=== PATIENT | male | born 1945 | race Caucasian/White ===

== ENCOUNTER → 2018-11-11 12:14 | Outpatient (CLI) | payer OTHER, SELFPAY ==
--- NOTE | 2018-11-11 12:21 | DI.RAD.S_ITS ---
PROCEDURE: XR LUMBAR SPINE MIN 4V INDICATIONS: low back pain TECHNIQUE: 5 views of the lumbar spine were acquired. COMPARISON: [facility], CR, SPINE LUMB MIN 4VW, 06/18/2016, 14:34. FINDINGS: Bones: No fracture or focal osseous destruction. Multilevel degenerative endplate sclerosis and spurring. Diffuse facet arthropathy. Straightening of the normal lumbar lordosis. Severe narrowing of the L4-L5 and L5 as this space. Moderate narrowing of the remaining lumbar disc spaces. Severe bilateral hip degeneration also noted. Soft tissues: Overlying bowel gas pattern is normal. No suspicious soft tissue calcifications. Scattered vascular calcifications seen in the aorta. Oblique images: No pars defects. IMPRESSION: Diffuse lumbar spondylosis and facet arthropathy, without interval change since 06/18/16 Dictated by: David Bunch M.D. on 11/11/2018 at 13:34 Approved by: David Bunch M.D. on 11/11/2018 at 13:36
--- NOTE | 2018-11-11 12:21 | DI.RAD.S_ITS ---
PROCEDURE: XR HIP W PEL IF DONE LT 2V INDICATIONS: left hip pain TECHNIQUE: AP pelvis with lateral view(s) of the left hip(s). COMPARISON: None. FINDINGS: Bones: No fractures or dislocations. Pelvic ring appears intact. No suspicious bony lesions. Lower lumbar spondylosis. Severe bilateral hip joint degeneration. Soft tissues: The visualized bowel gas pattern is normal. No suspicious soft tissue calcifications. IMPRESSION: Severe bilateral hip degeneration. Dictated by: David Bunch M.D. on 11/11/2018 at 14:19 Approved by: David Bunch M.D. on 11/11/2018 at 14:21
== END ==
PROVIDERS: Family Provider Family Medicine; PCP Family Medicine; Visit Provider Physical Medicine & Rehabilitation
DX: M54.5 Low back pain (principal); M47.816 Spondylosis without myelopathy or radiculopathy, lumbar region; M16.0 Bilateral primary osteoarthritis of hip
CPT/HCPCS: 72110; 73502

== ENCOUNTER 2018-12-14 11:20 | Outpatient (CLI) | payer OTHER, SELFPAY ==
[2018-12-14] VITALS (9 sets, daily range): BP systolic 121–151; BP diastolic 67–83; PULSE 54–68; RESP 16–18; TEMP 36.9; O2SAT 95–97
--- NOTE | 2018-12-14 11:21 | DI.RAD.S_ITS ---
PROCEDURE: PAIN L/S FACET INJ/BLK 1ST MARI COMPARISON: None. INDICATIONS: SPONDYLOSIS FINDINGS: 6 intraoperative fluoroscopy images demonstrate needle placement at L4-L5 and L5-S1 facet joints bilaterally. IMPRESSION: Fluoroscopy for pain management. Dictated by: Daisy Jeter M.D. on 12/14/2018 at 17:03 Approved by: Daisy Jeter M.D. on 12/14/2018 at 17:04
[2018-12-14] MEDS: MIDAZOLAM 5 MG/5 ML VIAL IV (12:27)
[2018-12-14] MEDS: LIDOCAINE 1% 20 ML INJ 10 ML INJ (12:35)
[2018-12-14] MEDS: BUPIVACAINE 0.5% (PF) VIAL 2 ML INJ (12:35)
[2018-12-14] MEDS: IOPAMIDOL 15 ML VIAL 3 ML INJ (12:35)
[2018-12-14] MEDS: BETAMETHASONE 30 MG/5 ML MDV 12 MG INJ (12:36)
--- NOTE | 2018-12-14 12:41 | PC.NURSE ---
ASSISTING PT OFF TABLE AND TRANSPORTING TO POST PROC AREA IN STABLE CONDITION
--- NOTE | 2018-12-14 12:47 | PC.NURSE ---
Pt returned awake and alert via wheelchair from post procedure. pt able to move from w/c to chair with standby assist. Resumed monitoring from Eloisa HOANG.
--- NOTE | 2018-12-14 12:47 | P.PCN_ITS ---
Procedures Date/Time Date of procedure: 12/14/18 Time of procedure: 12:46 General Procedure description: PREOP DIAGNOSIS 1. FACET ARTHROPATHY 2. AXIAL LBP 3. MULTILEVEL DDD POST OP DIAGNOSIS 1. FACET ARTHROPATHY 2. AXIAL LBP 3. MULTILEVEL DDD PROCEDURES 1. FLUORSCOPICALLY GUIDED CONTRAST CONTROLLED FACET JOINT INJECTIONS BILATERAL L4/5, L5/S1 PHYSICIAN: Chandler De La Rosa, DO INDICATIONS Kobe is referred by Dr. Callahan for treatment of Axial LBP FINDINGS Multilevel Facet Arthropathy with Clinically significant axial LBP DESCRIPTION OF PROCEDURE Fluoroscopically guided, contrast-controlled bilateral L4/5, L5/S1 facet joint injections. Following review of allergy and review of potential side effects and complications, including, but not necessarily limited to, infection, allergic reaction, local tissue breakdown, stroke, temporary or permanent nerve injury, paralysis, and possible , the patient indicated that the patient understood and agreed to proceed. An informed consent document was signed by the patient, witnessed by a nurse, and placed in the patient's chart. Additionally, other treatment options including medications, modalities, and physical therapy were reviewed with the patient. After review of previous anaesthesic history and IV conscious sedation the patient was deemed safe to proceed with todays procedure with IV conscious sedation as ASA class II designation. Safety time-out was performed to confirm patient ID, procedure to be performed and site of procedure. IV sedation was accomplished with a combination of 2mg of Versed was administered by the RN after DO order, titrated to patient comfort during the course of the procedure while the patient remained responsive to all verbal commands. In the prone position, following sterile prep and drape of the lumbar region, the posterior aspect of the L4/5, L5/S1 facet joints were identified fluoroscopically. The skin was anesthetized via a 25-gauge 1.5-inch needle with 1% lidocaine solution into the corresponding facet joints. At this point, a 22- gauge 3.5-inch spinal needle was atraumatically introduced and advanced under fluoroscopic guidance into the corresponding facet joints. Following negative aspiration, injections of approximately 0.2-cc of Isovue 200 confirmed interarticular placement without vascular uptake. The identical procedure was then performed at the L4/5, L5/S1 facet joints on the left. Radiological data, including multiple fluoroscopic views of the lumbosacral spine, reveal a spinal needle at the L4/5, L5/S1 facet joints bilaterally. Subsequent views show flow of contrast material both superiorly and inferiorly within the joint space without vascular or intrathecal uptake. At this point, a total of 0.5 cc including a mixture of 0.25cc Marcaine and 0.25cc betamethasone was injected without complication into each of the corresponding facet joints. The patient tolerated the procedure well without signs or symptoms of complications prior to transfer to the recovery area continued monitoring without incident. The patient was then transferred to the recovery area where they were observed for an appropriate period of time after the injection. The patient reported a VAS score of 7 prior to the procedure and a post- procedure VAS of 0. Total Fluoroscopy Time: 20.3 seconds Total Conscious Sedation Time: 24min POST OP INSTRUCTIONS The patient was provided a Pain Log to continue to record their response to the target-specific procedure prior to follow-up visit with their referring physician. Additionally, specific post-injection care instructions and a contact number to our office were provided if concerns arise regarding possible complications associated with the procedure are suspected. Chandler De La Rosa DO Complications: none
== END 2018-12-14 13:15 ==
PROVIDERS: Family Provider Family Medicine; PCP Family Medicine; Visit Provider Physical Medicine & Rehabilitation
DX: M47.816 Spondylosis without myelopathy or radiculopathy, lumbar region (principal); M47.817 Spondylosis without myelopathy or radiculopathy, lumbosacral region; M54.5 Low back pain; M51.36 Other intervertebral disc degeneration, lumbar region; M51.37 Other intervertebral disc degeneration, lumbosacral region
CPT/HCPCS: 64493; 64494; 99152; J0702; J2250; J3010

== ENCOUNTER 2019-08-22 09:47 | Inpatient (IN) | payer MEDICARE, SELFPAY ==
[2019-08-18 09:49] VITALS: BMI 26.4
[2019-08-22] VITALS (13 sets, daily range): BP systolic 86–148; BP diastolic 47–92; PULSE 64–92; RESP 11–24; TEMP 36.2–37; O2SAT 91–100; BMI 25.4
--- NOTE | 2019-08-22 | DI.RAD.S_ITS ---
PROCEDURE: XR HIP W PEL IF DONE LT 2V INDICATIONS: LEFT ANTERIOR HIP TECHNIQUE: AP pelvis and lateral view of the left hip acquired. COMPARISON: [facility], [facility], XR HIP W PEL IF DONE LT 2V, 11/11/2018, 12:35. FINDINGS: Spot fluoroscopic intraoperative images demonstrating expected intraoperative alignment of left hip arthroplasty components. Hardware appears intact. Dictated by: David Bunch M.D. on 08/22/2019 at 16:31 Approved by: David Bunch M.D. on 08/22/2019 at 16:32
--- NOTE | 2019-08-22 06:00 | DI.RAD.S_ITS ---
PROCEDURE: XR PELVIS 1-2V INDICATIONS: post op TECHNIQUE: 1 view of the lower pelvis acquired. COMPARISON: [facility], CR, XR PELVIS 1 OR 2 VIEWS, 05/31/2019, 11:34. [facility], [facility], XR HIP W PEL IF DONE LT 2V, 08/22/2019, 14:29. FINDINGS: Bones: Patient is status post left total hip arthroplasty, with hardware components in expected positions. The hip joint appears congruent. The visualized bony structures appear intact. Soft tissues: Overlying postoperative changes are noted. No suspicious soft tissue densities. IMPRESSION: Expected appearance of the left total hip arthroplasty. Dictated by: Dionisio Dong M.D. on 08/22/2019 at 16:04 Approved by: Dionisio Dong M.D. on 08/22/2019 at 16:08
[2019-08-22] MEDS: ACETAMINOPHEN 325 MG TABLET 975 MG PO (10:26)
[2019-08-22] MEDS: PREGABALIN 75 MG CAPSULE PO (10:26)
[2019-08-22] MEDS: LACTATED RINGERS 1,000 ML 42 ML IV ×2 (12:00→13:43)
--- NOTE | 2019-08-22 12:08 | PM.PREOP ---
Pre-operative Note Interval Note History & Physical reviewed/Exam performed by Physician: Yes Changes to H&P: No H&P completed within 30 days and has changed as indicated here:: Plan for L anterior TIMOTHY
[2019-08-22] MEDS: CEFAZOLIN 2 GM/100 ML FROZ.PIGGY IV ×2 (12:25→19:23)
--- NOTE | 2019-08-22 13:12 | SUR.OPER ---
Supine on [place] table. Head on a foam. Right arm secured on padded armboard. Left arm is taped to patient's torso, padded with a blanket. Both feet placed in boots by a surgeon and PA, and secured.
[2019-08-22] MEDS: ROPIVACAINE 0.5% PF 5 MG/ML 20ML VIAL 60 ML INJ (13:34)
[2019-08-22] MEDS: MORPHINE 4 MG/ML INJ INJ (13:35)
[2019-08-22] MEDS: KETOROLAC 30 MG/ML VIAL IV (13:35)
[2019-08-22] MEDS: TRANEXAMIC ACID 1,000 MG VIAL 1000 MG INJ (13:37)
--- NOTE | 2019-08-22 14:56 | PM.OP.1 ---
Operative Date/Time/Diagnoses Date of procedure: 08/22/19 Time of procedure: 14:56 Pre-op diagnosis: L hip OA Post-op diagnosis: same Procedure & Clinicians Procedure: Left anterior total hip arthroplasty Same procedure as scheduled: Yes Indications: Left hip osteoarthritis Surgeon: Bal Hoyt Flying Instructor: Anna Hathaway Anesthesia Type: General and Spinal Operative Notes Findings: Left hip OA Closure Type: primary Specimen(s): none sent Prosthetic devices, grafts, tissues, transplants, or devices: Bardales and Nephew 56 mm R3 cup Bardales and Nephew 56 x 36 mm polyethylene liner Bardales and Nephew standard offset anthology size 11 Bardales and Nephew Oxinium 36-3 mm head 1x 25mm screw Estimated Blood Loss (mL): 200 Blood products transfused: none Procedure in detail: Patient was met in the preoperative holding area where the site and side of surgery were marked by MD. All last minute questions were reviewed with the patient and answered. Patient was then brought back in the operating room where use transferred onto the [place] table and he received a spinal anesthetic. Patient was then placed supine on the [place] table and induced under general anesthesia. Bilateral feet were placed on the table boots were well padded. The left anterior hip was then prepped and draped in normal sterile fashion. A time-out was performed verifying the site and side of surgery as well as the name of the patient. A 6 cm long incision was made starting 2 cm distal and 1 cm lateral from that ASIS. This line aim towards the fibular head. Electrocautery was then used down to the level of the tensor fascia. A 10. Blade was used to incise the tensor fascia and Allis clamp was placed on the medial leaflet of the tensor fascia and the tensor was then retracted laterally. A Cobra was placed over the superior neck followed by a Cobra over the inferior neck. The ascending recurring vessels were then coagulated using electrocautery. An anterior acetabular retractor was used to retract the rectus. This gave us good as a visualization of the capsule which was then incised in a T-fashion. [place] is replaced into each leaflet of the capsule. A neck cut was then performed using an oscillating saw followed by removal of the head using a corkscrew. Retractors then repositioned gives good acetabular exposure. We began reaming with a 51 mm Reamer followed by 52 followed by 54 followed by 55 mm reamers. A 56 mm cup was then selected and malleted into place under fluoroscopic guidance. One superior screw was placed. This had good purchase. A 56 x 36 mm polyethylene final liner was then placed. We then placed the femoral elevator hook underneath the femur and performed the appropriate releases while lowering the leg down to the floor and abducting the leg to give us good exposure femoral neck cut. The capsule was released between the special attention as to not release the short external rotators fully. Canal finer was used to find the center of the femoral canal. Followed by a chili pepper broach followed by a 1. Broach and we increased space 1 size at a time up to a size 11 broach. We trialed with a standard offset +0 head and found to be a little long. This was then dislocated the trial components removed and the final 11 anthology standard offset stem was placed with a 36-3 Oxinium head. This apart through final range of motion found to be stable. Wound was irrigated with normal saline followed by Betadine followed by normal saline. The capsule was repaired using Ethibond in running suture fashion. Tag stitches were removed. The tensor fascia was then closed with a 1. Running Vicryl and subcutaneous tissues closed using 2 Vicryl followed by stress FX on the skin an Aquacel dressing was placed. Complications: none Post-operative Condition: stable Disposition: PACU Plan for aftercare: Weightbearing as tolerated left lower extremity. No precautions. ASA 81 mg b.i.d. for 6 weeks.
[2019-08-22] MEDS: OXYCODONE IR 5 MG TABLET PO (16:03)
--- NOTE | 2019-08-22 16:04 | SUR.PHASEI ---
Gave PO pain medication preemptively. Tolerating po. Denies pain and nausea. DARIO's x 4. Sugeyg CDI.
[2019-08-22] MEDS: LACTATED RINGERS 1,000 ML 125 ML IV (16:56)
[2019-08-22 17:51] LABS: Mean Corpuscular HGB Conc 33.3 % (30-36); Mean Corpuscular Hemoglobin 31.5 PG (26-34); Mean Corpuscular Volume 94.8 fL (80-100); Platelet Count 302 X10^3/uL (150-400); Red Blood Cell Count 4.44 X10^6/uL (4.5-5.9); White Blood Cell Count 25.6 X10^3/uL (4.5-11.0)
[2019-08-22 17:54] LABS: Add Manual Diff / Slide Review YES
[2019-08-22 18:13] LABS: Neutrophils Absolute Manual 24320 /uL (3000-5900); RBC Morphology Normal Morphology; Total Cells Counted 100
--- NOTE | 2019-08-22 18:42 | PC.NURSE ---
Pt stated he did not have his am dose of metoprolol (12.5 mg) due to surgery. He requested he have his pm dose early. Pharmacy re timed pm dose for 1899.
[2019-08-22] MEDS: ACETAMINOPHEN 325 MG TABLET 650 MG PO (20:59)
[2019-08-22] MEDS: TAMSULOSIN 0.4 MG CAPSULE 0.8 MG PO (21:00)
[2019-08-22] MEDS: ASPIRIN EC 81 MG TABLET PO (21:00)
[2019-08-22] MEDS: DOCUSATE 100 MG CAPSULE PO (21:00)
[2019-08-22] MEDS: diphenhydrAMINE 25 MG TABLET PO (22:20)
[2019-08-23] VITALS (7 sets, daily range): BP systolic 99–166; BP diastolic 51–77; PULSE 55–88; RESP 16–19; TEMP 36.7–37.4; O2SAT 92–98
[2019-08-23] MEDS: LACTATED RINGERS 1,000 ML 125 ML IV (01:39)
--- NOTE | 2019-08-23 02:41 | PC.NURSE ---
Tried to void on his own x4, was not able to void. Bladder scanned showed 546 cc in his bladder. In & Out catheterization done 650 cc out jareth urine. Encouraged fluids, will monitor.
[2019-08-23] MEDS: OXYCODONE IR 5 MG TABLET PO ×3 (04:08→21:37)
[2019-08-23] MEDS: CEFAZOLIN 2 GM/100 ML FROZ.PIGGY IV (04:08)
[2019-08-23 06:53] LABS: Hematocrit 39.6 % (41-53)
--- NOTE | 2019-08-23 07:40 | PM.PNPO.1 ---
Subjective Subjective Date Patient Seen: 08/23/19 Time Patient Seen: 07:40 Interval history: POD #1 s/p left TIMOTHY anterior approach with Dr. Hoyt. Patient was unable to void last night. He has a history of BPH. He was straight cathed last night. His pain is well-controlled last night. He has been mobilizing to bathroom. Exam Vital Signs (past 8 hours): - 08/23/19 00:27 08/23/19 05:09 Temperature 98.0 F 98.0 F Pulse Rate 86 68 Respiratory Rate 19 18 Blood Pressure 166/77 H 110/63 Pulse Oximetry 93 92 Oxygen Delivery Method Room Air Oxygen Flow Rate 0 Narrative Exam Narrative: Patient lying in bed in no acute distress. He is alert orient x3. Calves are soft, compressible, nontender bilaterally. Pulses are symmetrical. Anterior hip dressing CDI. He is able to actively dorsiflex plantar flex. Objective Labs Result Diagrams: 08/23/19 06:25 Labs: Laboratory Results - last 24 hr 08/22/19 08/23/19 17:36 06:25 WBC 25.6 H RBC 4.44 L Hgb 14.0 13.0 L Hct 42.0 39.6 L MCV 94.8 MCH 31.5 MCHC 33.3 RDW 14.0 Plt Count 302 Neut % (Auto) Not Reportable Lymph % (Auto) Not Reportable [place] % (Auto) Not Reportable Eos % (Auto) Not Reportable Baso % (Auto) Not Reportable Lymph # (Auto) Not Reportable [place] # (Auto) Not Reportable Baso # (Auto) Not Reportable Total Counted 100 Seg Neutrophils % 85.0 H Band Neutrophils % 10.0 H Lymphocytes % (Manual) 3.0 L Monocytes % (Manual) 2.0 Neutrophils # (Manual) 00656 H RBC Morphology Normal morphology Assessment & Plan Post-op Postoperative Procedures: Procedures Operation Date: 08/22/19 11:15 Actual Procedures Side Surgeon p Total Hip Arthroplasty/Anterior Approach Left Bal Hoyt MD Patient will continue to mobilize with physical therapy today. Anterior hip precautions. If patient is unable to void recommending Ramos until tomorrow morning. He already takes Flomax for his BPH. Patient has acute urinary retention and not recommending discharge until he voids. Quality VTE Deep Vein Thrombosis/Pulmonary Embolism Present on Admission: No
[2019-08-23] MEDS: DOCUSATE 100 MG CAPSULE PO ×2 (09:31→21:34)
[2019-08-23] MEDS: PANTOPRAZOLE 20 MG TABLET PO (09:32)
[2019-08-23] MEDS: lisinopriL 10 MG TABLET 15 MG PO (09:32)
[2019-08-23] MEDS: ASPIRIN EC 81 MG TABLET PO ×2 (09:32→21:34)
[2019-08-23] MEDS: ACETAMINOPHEN 325 MG TABLET 650 MG PO ×3 (09:33→21:33)
[2019-08-23] MEDS: FLUoxetine 10 MG CAPSULE PO (09:33)
--- NOTE | 2019-08-23 09:45 | PT.IIE ---
Current Diagnoses Unilateral primary osteoarthritis, left hip (08/22/19) Surgery Performed Operation Date: 08/22/19 11:15 Actual Procedures p Total Hip Arthroplasty/Anterior Approach(Left) - Bal Hoyt MD Surgical History (Last Updated 08/18/19 @ 10:28 by Sarah Cohen, RN) History of colon resection (Acute ~1984) Hx of splenectomy (Acute ~1984) Hx of tonsillectomy (Acute) Medical History (Last Updated 08/18/19 @ 10:29 by Sarah Cohen RN) Arthritis (Acute) Crohn's disease (Acute) Easy bruisability (Acute) Hearing impaired (Acute) HTN (hypertension) (Acute) Memory changes (Acute) Osteoarthritis (Acute) Overactive bladder (Acute) Stomach ulcer (Acute) Thinning of skin (Acute) Physical Therapy Inpatient Evaluation/Re-Eval M1 PT/OT-IP Prior Functional Status Start: 08/23/19 12:18 Freq: NEEDED Status: Active Protocol: Document 08/23/19 09:45 AB (Rec: 08/23/19 12:40 AB [email or web address]) Medical Review Prior Functional Status Medical History Reviewed Yes Communication able to make needs known Mobility and Gait pt stated that he is independent with all mobilities and ambulation without AD Social History Household Members spouse Living Arrangements House Number of Floors (Floors) One Floor Number of Stairs To Enter/Railing? 3 platform step to enter the house Home Environment High Toilet,Walk in Shower,Tub /Shower Doors Home Equipment Front Wheel Walker,Shower Seat without Backrest,Grab Bars In Shower M2 PT-IP Current Condition Start: 08/23/19 12:18 Freq: NEEDED Status: Active Protocol: Document 08/23/19 09:45 AB (Rec: 08/23/19 12:40 AB [email or web address]) Physical Therapy Current Condition Current Condition Evaluation Date 08/23/19 Treatment Diagnosis s/p L TIMOTHY anterior approach; difficulty in walking Onset Date 08/22/2019 Precautions Other Precautions per doctor's note: no precautions. Weight Bearing Status Weight Bearing Status Weight Bear as Tolerated Allowed Weight Bearing Amount (enter % WBAT LLE or #) (%) M3 PT-IP Subjective Start: 08/23/19 12:18 Freq: NEEDED Status: Active Protocol: Document 08/23/19 09:45 AB (Rec: 08/23/19 12:40 AB [email or web address]) Subjective Physical Therapy Visit Type Type Initial Evaluation Visit Start Time 09:45 Visit Stop Time 10:15 Total Visit Minutes 30 Number of ENVIRONMENTAL ASSOCIATE Visits 0 Physical Therapy Visit Comments Patient Comments pt agreeable to do PT. Therapy Pain Assessment Pain When Pain Assessed At Rest Pain Present Pain Present Pain Reported Location Left Hip Intensity 3 Scale Used Numeric (1 - 10) Pain Management Techniques Apply Cold,Timing of Activity with Medications M4 PT-IP Mobility and Gait Start: 08/23/19 12:18 Freq: NEEDED Status: Active Protocol: Document 08/23/19 09:45 AB (Rec: 08/23/19 12:40 AB [email or web address]) PT-Bed Mobility Assessment Supine to Sit Supine to Sit Standby Assistance Sit to Supine Sit to Supine Standby Assistance Scooting Scooting to Edge of Bed Standby Assistance Scooting Up and Down in Bed Standby Assistance PT-Transfer Assessment Sit to and From Stand Sit to and from Stand Contact Guard Assistance,1 Person Assistance,Use of Upper Extremities Equipment Transfer Assistive Device Gait Belt,Front Wheeled Walker Orthotic/Prosthetic Devices or Brace: No Transfers Transfer Destination Toilet Transfer Technique ambulated using FWW Transfer Ability Level of Assist Standby Assistance Comments Mobility Comments pt is impulsive. completed supine to sit SBA and was able to sit on EOB SBA. completed sit to stand CGA and ambulated to the toilet using FWW CGA. pt requires cues on how to use the FWW. pt was able to maintain standing using FWW for support SBA. pt ambulated to the sink using FWW CGA. pt ambulated in the hallway using FWW towards the stairs and completed up/down steps using FWW. ambulated back to the room using FWW CGA . pt agreed to sit up on chair. call light and table placed within reach. Gait Assessment Gait Gait Assistance Required: Contact Guard Assist Distance (Feet) 50 Able to Maintain Weight Bearing Status Yes During Gait Assistive Devices Assistive Device Gait Belt,Front Wheeled Walker Orthotic/Prosthetic Devices or Brace: No Factors Limiting Gait Function Factors Limiting Gait Function Decreased Strength,Pain,Poor Safety Awareness Comments Gait Comments ambulated 50 ft x 2 using FWW CGA and cues for safety. pt requires cues on how to use FWW. pt is impulsive. Stair Climbing Assessment Evaluation Level of Assist On Stairs Contact Guard Assistance,1 Person Assistance Devices Stair Climbing Assistive Devices Front Wheel Walker Technique/Endurance Stair Climbing Direction Ascend and Descend Stair Climbing Technique Step to Step Number of Steps Climbed 1 Query Text: Stair Climbing Set # Repetitions (reps) 3 Comments Stair Climbing Comments completed up/down platform step using FWW CGA and cues. PT-Balance Assessment Sitting Balance and Reactions Static Sitting Balance Ability Good Dynamic Sitting Balance Ability Good Standing Balance and Reactions Static Standing Balance Ability Fair Dynamic Standing Balance Ability Fair Device Used FWW M5 PT-IP Objective Assessments Start: 08/23/19 12:18 Freq: NEEDED Status: Active Protocol: Document 08/23/19 09:45 AB (Rec: 08/23/19 12:40 AB [email or web address]) Orientation Orientation/Cognition Level of Alertness Alert Orientation Name,Age,Birthday,Month,Date, Year,Day of Week,Place, Situation Safety Awareness Decreased Safety Awareness Gross Range of Motion Lower Extremity ROM Assessment Within Functional Limits Strength Lower Extremity Strength Assessment Left Impaired Hip 3+/5 Knee 4-/5 Coordination Assessment Gross Coordination Gross Coordination WNL Muscle Tone Muscle Tone WNL Yes M6 PT-IP Treatment Start: 08/23/19 12:18 Freq: NEEDED Status: Active Protocol: Document 08/23/19 09:45 AB (Rec: 08/23/19 12:40 AB [email or web address]) Physical Therapy Treatment Education Education Provided Precautions,Weight Bearing Status,Post-Op Packet,Safety M7 PT-IP Assessment and Plan Start: 08/23/19 12:18 Freq: NEEDED Status: Active Protocol: Document 08/23/19 09:45 AB (Rec: 08/23/19 12:40 AB [email or web address]) PT Summary Assessment and Plan Potential Rehabilitation Potential Good Status of Condition at Evaluation Stable Summary Impairments Pain,ROM,Strength,Balance, Coordination,Sensation,Tone, Cognition,Bed Mobility, Transfers,Gait,Activity Tolerance Assessment Summary pt requiring SBA to CGA with mobility but requires constant cues for safety. pt. plans to go home with spouse to assist him. pt stated that he is scheduled for outpt PT. pt may go home when medically stable. Goals Bed Mobility Goal Independent Transfer Goal Independent,Front Wheeled Walker Gait Goal Independent,Front Wheel Walker Gait Distance 200 Other Goals up/down platform step using FWW SBA Days to Meet Goals 5 Frequency of Treatment Frequency Of Treatment Twice a Day Treatment Plan Physical Therapy Treatment Plan Bed Mobility Training,Transfer Training,Gait Training, Therapeutic Exercise,Balance Retraining,Post Op Education, Discharge Planning,Hot or Cold Pack,Neuromuscular Re-ed, Coordination Retraining,Manual Therapy Other Recommendations and Next Treatment ambulation, stair climbing Focus Recommendations To Nursing Amount of Assist Needed 1 Person Assist Discharge Recommendations PT Discharge Recommendations Home with Assistance, Outpatient PT Transportation Needs at Discharge Private Vehicle
--- NOTE | 2019-08-23 13:03 | CM.DANOTE ---
Addendum entered by Staci Michaud LPN 08/23/19 13:27: Met with pt, introduced self and role. Pt is a 74 year old male who admitted yesterday for a planned L TIMOTHY. Anterior approach. Dr. Hoyt: surgeon. PCP: pt confirms: Violet Alcaraz: clinic in [place]. Admission status: INPT: confirmed by UR VIKTOR Juares Payer: [facility]. Pt uses a FWW at baseline and has this in the room with him. He confirms his plan for home when he is ready for d/c: with plan for outpt PT at clinic in [place]. He states he does have some family support but my Sarah does not drive, she is bipolar and is having a lot of trouble right now. [place] but will be able to drive him to his outpt PT appts. Discussed transport back to [place] when he is d/c'd. Pt initially said he planned [place] and walk on...After further discussion he admits that at least 2 friends have offered to come and pick him up and have strongly encouraged him to accept their help. He is now agreeable to same. He requests a ferry schedule so he can help his friends in coordination of same. He says it will be helpful if he can know ahead of time when he will likely d/c. Will provide ferry schedule now. Original Note: Discharge Planning/Care Management DCP: assessment: case received, EMR reviewed. Discussed in Team Rounds. PT Trisha's eval is noted. Will check in with pt now to continue the assessment process. Advanced directive, confirm from FAMILY Start: 08/22/19 16:47 Freq: Q24H Status: Active Protocol: Document 08/22/19 16:47 SL (Rec: 08/22/19 17:08 SL [id number]) Advance Directive, confirm on record Time 17:08 Person contacted patient Copy received No CM Discharge Assessment Start: 08/23/19 13:02 Freq: Status: Active Protocol: Document 08/23/19 13:02 ITV (Rec: 08/23/19 13:03 ITV [id number]) Discharge Planning Assessment Advance Directives? No Advance Directives on File No History Provided By Patient,Medical Record Prior Living Arrangements House Household Members spouse Independent with ADL's Yes Is patient alert and oriented? Yes Whiteboard Updated in Patient Room with Yes name and ext. # of Community Service Coordinator Pre-Anesthesia Assessment Start: 08/18/19 09:48 Freq: Status: Active Protocol: Document 08/18/19 09:49 [facility] (Rec: 08/18/19 10:46 CAB [id number]) Pre-Anesthesia Assessment PAC Comment Pt seems easily confused, repeats/denies some medications, unable to spell his 's name. When asked about his memory, he states, maybe a little problems. Patient Information Reviewed Via Phone Assessment Assessment Completed With Patient Diagnostic Results CBC,EKG Comment Outside lab/EKG report(no tracing)scanned to record Primary Care Provider Violet Callahan Seen Specialist in Last 12 Months Yes Specialist Seen Orthopedist,Other Comment Pain management visits Primary Language Mongolian Electric Fan Assembler Required No Height 182.88 cm Weight 88.451 kg Body Mass Index (BMI) 26.4 Hearing Ability Hard of Hearing Visual Assist Glasses Dentition Type Teeth, Natural Present Barriers to Learning Memory Comment Pt confused when going over medications Hx Anesthesia Reactions No: Memory changes Hx Family Anesthesia Reaction No Hx Malignant Hyperthermia No Hx Blood Transfusions Yes: r/t splenectomy/colon resection 1984 Hx Blood Transfusion Reaction No Anesthesia Review Requested No Wheel Truer Yes: Lives on [address], memory changes alcohol intake current alcohol intake frequency 0-2 drinks per day Smoking Status Former smoker Tobacco type cigarettes how long ago did patient quit smoking Quit >45 years ago Substance Use Type does not use Pain Present Pain Reported Musculoskeletal Symptoms Abnormal Gait,Back Pain, Difficulty Walking,Joint Pain, Neck Pain History of Falling (Recent or History of No ) Patient is completely paralyzed or No completely immobile Mental Status Oriented to own ability Is patient on oxygen? No Does patient have JOY/SOB No Hx Sleep Apnea No Currently Taking a Beta Som No Can You Climb a Flight of Stairs Without Yes SOB Hx Chest Pain No Hx SOB No Hx Syncope or Dizziness No Anti-Coagulant Therapy No Has a Slat Basket Maker Helper No Cardiac Testing No Hx Pacemaker/ICD No Pacemaker Rep Required? No Cardiac Clearance Received Not Applicable Diet Type At Home Regular dysphagia No Genitourinary Symptoms Dribbling Bladder Pattern Frequency Urinary Catheter Present No Hx Urinary Self Catheterization No Diabetes No Hx Drug Resistant Organism No Presence of External or Internal Medical No Devices Have you traveled outside the [place] No States in the last 30 days? Marital Status Lives With spouse Prior Living Arrangements House Number of Floors (Floors) One Floor Support System Child/Children,Spouse Does the Patient Have Assistance After Yes Surgery Patient Discharge Plan Description Return Home Comment Pt not advised on length of stay per surgeon. Pt lives on [facility] Feels Safe in Current Environment Yes Been Physically Hurt or Threatened By a No Person in Current Environment Do you have thoughts of harming yourself None or others? Are you currently considering suicide? No Do you have a plan to hurt yourself or No Plan others? Do You Have Any Spiritual Beliefs That No May Affect Your HC Choices? Do You Have Any Cultural Practices That No May Affect Your HC Choices? Comment Hinduism Who Can We Speak to About Patient's Care Family, friends Identifying Code for Release of Patient Declines to issue Information Health Care Proxy/Next of Kin Savi () Health Care Proxy Emergency Contact Name Savi () Emergency Contact Advance Directives? No Power of Allied Health Professional No PAC Instructions Durable medical equipment, Medications to take/avoid, Nasal antibiotic,No ETOH/ petroleum product on skin DOS, NPO,Post-op transportation, Sensory aids,Sturdy shoes/ comfortable clothes,Do not bring valuables and remove jewelry
--- NOTE | 2019-08-23 14:48 | PC.NURSE ---
Day shift: Pt restless this afternoon. Atempted to get OOB 2 times per RN student and SUBSTITUTE BUS DRIVER. Reminded Pt that he needs to not get OOB w/o help from staff because he had surgery, has SCD's on, and a Ramos cath in place.
--- NOTE | 2019-08-23 15:25 | PT.IPTN ---
Current Diagnoses Unilateral primary osteoarthritis, left hip (08/22/19) Surgery Performed Operation Date: 08/22/19 11:15 Actual Procedures p Total Hip Arthroplasty/Anterior Approach(Left) - Bal Hoyt MD Physical Therapy Treatment Note M2 PT-IP Current Condition Start: 08/23/19 12:18 Freq: NEEDED Status: Active Protocol: Document 08/23/19 09:45 AB (Rec: 08/23/19 12:40 AB [email or web address]) Physical Therapy Current Condition Current Condition Evaluation Date 08/23/19 Treatment Diagnosis s/p L TIMOTHY anterior approach; difficulty in walking Onset Date 08/22/2019 Precautions Other Precautions per doctor's note: no precautions. Weight Bearing Status Weight Bearing Status Weight Bear as Tolerated Allowed Weight Bearing Amount (enter % WBAT LLE or #) (%) M3 PT-IP Subjective Start: 08/23/19 12:18 Freq: NEEDED Status: Active Protocol: Document 08/23/19 15:25 AB (Rec: 08/23/19 17:39 AB [email or web address]) Subjective Physical Therapy Visit Type Type Treatment Note Visit Start Time 15:25 Visit Stop Time 15:39 Total Visit Minutes 14 Number of SENIOR ENGINEERING SPECIALIST Visits 0 Physical Therapy Visit Comments Patient Comments pt agreeable to do PT Therapy Pain Assessment Pain When Pain Assessed At Rest Pain Present Pain Present Pain Reported Location Left Hip Intensity 2 Scale Used Numeric (1 - 10) Pain Management Techniques Timing of Activity with Medications M4 PT-IP Mobility and Gait Start: 08/23/19 12:18 Freq: NEEDED Status: Active Protocol: Document 08/23/19 15:25 AB (Rec: 08/23/19 17:39 AB [email or web address]) PT-Bed Mobility Assessment Supine to Sit Supine to Sit Standby Assistance Sit to Supine Sit to Supine Standby Assistance PT-Transfer Assessment Sit to and From Stand Sit to and from Stand Standby Assistance,Use of Upper Extremities Equipment Transfer Assistive Device Gait Belt,Front Wheeled Walker Orthotic/Prosthetic Devices or Brace: No Gait Assessment Gait Gait Assistance Required: Standby Assistance Distance (Feet) 150 Able to Maintain Weight Bearing Status Yes During Gait Assistive Devices Assistive Device Gait Belt,Front Wheeled Walker Orthotic/Prosthetic Devices or Brace: No Factors Limiting Gait Function Factors Limiting Gait Function Pain,Poor Balance,Poor Safety Awareness Stair Climbing Assessment Evaluation Level of Assist On Stairs Contact Guard Assistance,1 Person Assistance Devices Stair Climbing Assistive Devices Front Wheel Walker Technique/Endurance Stair Climbing Direction Ascend and Descend Stair Climbing Technique Step to Step Number of Steps Climbed 1 Stair Climbing Set # Repetitions (reps) 2 M5 PT-IP Objective Assessments Start: 08/23/19 12:18 Freq: NEEDED Status: Active Protocol: Document 08/23/19 09:45 AB (Rec: 08/23/19 12:40 AB [email or web address]) Orientation Orientation/Cognition Level of Alertness Alert Orientation Name,Age,Birthday,Month,Date, Year,Day of Week,Place, Situation Safety Awareness Decreased Safety Awareness Gross Range of Motion Lower Extremity ROM Assessment Within Functional Limits Strength Lower Extremity Strength Assessment Left Impaired Hip 3+/5 Knee 4-/5 Coordination Assessment Gross Coordination Gross Coordination WNL Muscle Tone Muscle Tone WNL Yes M6 PT-IP Treatment Start: 08/23/19 12:18 Freq: NEEDED Status: Active Protocol: Document 08/23/19 15:25 AB (Rec: 08/23/19 17:39 AB [email or web address]) Physical Therapy Treatment Education Education Provided Safety M7 PT-IP Assessment and Plan Start: 08/23/19 12:18 Freq: NEEDED Status: Active Protocol: Document 08/23/19 15:25 AB (Rec: 08/23/19 17:39 AB [email or web address]) PT Summary Assessment and Plan Potential Rehabilitation Potential Good Summary Impairments Pain,ROM,Strength,Balance,Bed Mobility,Transfers,Gait, Activity Tolerance Progress Towards Goals Progressing Toward Goals Assessment Summary pt is doing well with mobility and requires SBA and cues for safety. able to go up/down steps using FWW CGA. pt plans to go home and spouse to assist him. Goals Bed Mobility Goal Independent Transfer Goal Independent,Front Wheeled Walker Gait Goal Independent,Front Wheel Walker Gait Distance 200 Other Goals up/down platform step using FWW SBA Days to Meet Goals 5 Frequency of Treatment Frequency Of Treatment Twice a Day Treatment Plan Physical Therapy Treatment Plan Bed Mobility Training,Transfer Training,Gait Training, Therapeutic Exercise,Balance Retraining,Post Op Education, Discharge Planning,Hot or Cold Pack,Neuromuscular Re-ed, Coordination Retraining,Manual Therapy Other Recommendations and Next Treatment ambulation, stair climbing Focus Recommendations To Nursing Amount of Assist Needed 1 Person Assist Discharge Recommendations PT Discharge Recommendations Home with Assistance, Outpatient PT Transportation Needs at Discharge Private Vehicle
[2019-08-23] MEDS: TAMSULOSIN 0.4 MG CAPSULE 0.8 MG PO (21:34)
[2019-08-24] MEDS: OXYCODONE IR 5 MG TABLET PO ×2 (05:34→08:28)
--- NOTE | 2019-08-24 06:10 | PC.NURSE ---
Slept well last night, woke up with the pain scale of 5/10 medicated with 5 mg. oxycodone. Rachel DURAN''d @ 0600.
[2019-08-24 06:11] VITALS: BP 115/56; PULSE 66; RESP 16; TEMP 37.2; O2SAT 97
[2019-08-24 07:30] VITALS: BP 134/67; PULSE 73; RESP 16; TEMP 37.4; O2SAT 96
--- NOTE | 2019-08-24 08:03 | PM.DS.1 ---
History of Present Illness History of Present Illness Date Patient Seen: 08/24/19 Time Patient Seen: 08:03 Chief complaint: Left Total Hip Arthroplasty Narrative: Patient's pain is moderate. Denies fever chills. No nausea vomiting. Patient has been ambulating with use of walker. Patient was able urinate twice since having Ramos catheter removed last night. Patient does have assistance at home. Discharge Providers Provider Date of admission: 08/22/19 09:47 Discharge Date: 08/24/19 Primary care physician: Violet Callahan MD Consults: 08/22/19 06:00 Consult to Anesthesiology Routine Comment: Consulting Provider: Anesthesiologist Reason for consultation: Regional block for post operative pain control 08/22/19 16:06 Consult to Discharge Planning Routine Comment: Consult to Physical Therapy Evaluate & Treat Comment: Physician Instructions: post op TIMOTHY protocol Consult to Respiratory Therapy Evaluate & Treat Comment: Physician Instructions: Evaluate and treat Discharge provider: Christiano Perdomo PA-C Summary Hospital Course Discharge Diagnosis: Left anterior total hip arthroplasty secondary to severe left hip osteoarthritis Hospital Course: Procedure: Left anterior total hip arthroplasty Same procedure as scheduled: Yes Indications: Left hip osteoarthritis Surgeon: Bal Hoyt Contract Mail Carrier: Anna Hathaway Anesthesia Type: General and Spinal Operative Notes Findings: Left hip OA Closure Type: primary Specimen(s): none sent Prosthetic devices, grafts, tissues, transplants, or devices: Bardales and Nephew 56 mm R3 cup Bardales and Nephew 56 x 36 mm polyethylene liner Bardales and Nephew standard offset anthology size 11 Bardales and Nephew Oxinium 36-3 mm head 1x 25mm screw Estimated Blood Loss (mL): 200 Blood products transfused: none Patient admitted to the hospital for left total hip arthroplasty. Patient underwent left total hip arthroplasty is back in his room recovering well as in stable condition. Patient did have urinary retention which he had a catheter in till yesterday evening. He has been able to void twice since having catheter removed. Patient has been doing well with physical therapy and will be discharged home today in stable condition. Status at Discharge Cognitive/behavioral status at discharge: at baseline, oriented Functional status at discharge: uses cane/walker Overall status at discharge: patient is progressing back to baseline Time Spent with Patient Time spent: Less than 30 minutes Exam Vital Signs (past 8 hours): - 08/24/19 06:11 Temperature 98.9 F Pulse Rate 66 Respiratory Rate 16 Blood Pressure 115/56 L Pulse Oximetry 97 Oxygen Delivery Method Room Air Oxygen Flow Rate 0 Narrative Exam Narrative: 74-year-old male resting comfortably in bed in no apparent distress. Left hip dressing is clean, dry and intact. Motor functions intact distally. Sensation grossly intact to light touch. Both legs are warm and dry. Objective Labs Result Diagrams: 08/23/19 06:25 Discharge Plan Discharge Plan Patient Disposition: Home Discharge comment: DC home today after PT Discharge orders & Medications Prescriptions: New acetaminophen 325 mg Tablet 500 mg PO Q4HR Qty: 60 RF: 0 aspirin 81 mg Tablet,Delayed Release (Dr/Ec) 81 mg PO BID Qty: 60 RF: 0 oxycodone 5 mg Tablet 5 mg PO Q3HR PRN (Reason: Pain, Moderate (4-6)) Qty: 40 RF: 0 Continued Pentasa 250 mg Capsule, Extended Release 250 mg PO QID RF: 0 fluoxetine 20 mg Tablet 10 mg PO DAILY RF: 0 cyanocobalamin (vitamin B-12) [Vitamin B-12] 1,000 mcg Tablet 100 mcg PO DAILY RF: 0 ferrous gluconate 324 mg (38 mg iron) Tablet 324 mg PO BID RF: 0 pantoprazole 20 mg Tablet,Delayed Release (Dr/Ec) 20 mg PO DAILY RF: 0 cholecalciferol (vitamin D3) 2,000 unit capsule 2,000 unit PO DAILY RF: 0 lisinopril 30 mg tablet 15 mg PO DAILY RF: 0 loperamide [Imodium A-D] 2 mg capsule 1 mg PO DAILY RF: 0 melatonin 5 mg capsule 5 mg PO BEDTIME RF: 0 metronidazole 0.75 % gel 1 applictn TOP BID RF: 0 tamsulosin [Flomax] 0.4 mg capsule 0.8 mg PO BEDTIME RF: 0 Discontinued acetaminophen 325 mg Tablet 650 mg PO QID RF: 0 Follow up/Referrals: Violet Callahan MD [Primary Care Provider] - Bal Hoyt MD [Physician] - (follow up 2 wks) Discharge Health Status Multidrug resistant organism: No MDRO Diet/Activity/Treatments Diet: Diet as Tolerated Activity: WBAT, 10 ankle pumps every hour while awake, 10 heel slides every hour while awake, short 3-5 minute walk every hour while awake Cold/Heat Therapy: ice as needed Other treatments: Tylenol 500 mg every 4 hours, aspirin 81 mg twice daily, oxycodone as needed for pain Skin/Wound/Dressing Care Report to your healthcare provider any signs of infection, such as:: chills, fever, increased pain, unusual drainage and unusual redness Dressing: Keep dressing clean and dry Visit Report/Discharge Packet Instructions: DI for Hip Replacement, DI for Prescription Opioid Use Stand Alone Forms: Surgery Discharge Discharge Data Primary Care Provider: Violet Callahan VTE Deep Vein Thrombosis/Pulmonary Embolism Present on Admission: No
[2019-08-24] MEDS: ASPIRIN EC 81 MG TABLET PO (08:26)
[2019-08-24] MEDS: PANTOPRAZOLE 20 MG TABLET PO (08:26)
[2019-08-24] MEDS: ACETAMINOPHEN 325 MG TABLET 650 MG PO (08:27)
[2019-08-24] MEDS: lisinopriL 10 MG TABLET 15 MG PO (08:27)
[2019-08-24] MEDS: FLUoxetine 10 MG CAPSULE PO (08:30)
[2019-08-24] MEDS: SODIUM CHLORIDE 0.9% FLUSH 10 ML IV (08:30)
--- NOTE | 2019-08-24 09:09 | PT.IPTN ---
Current Diagnoses Unilateral primary osteoarthritis, left hip (08/22/19) Surgery Performed Operation Date: 08/22/19 11:15 Actual Procedures p Total Hip Arthroplasty/Anterior Approach(Left) - Bal Hoyt MD Physical Therapy Treatment Note M2 PT-IP Current Condition Start: 08/23/19 12:18 Freq: NEEDED Status: Active Protocol: Document 08/23/19 09:45 AB (Rec: 08/23/19 12:40 AB [email or web address]) Physical Therapy Current Condition Current Condition Evaluation Date 08/23/19 Treatment Diagnosis s/p L TIMOTHY anterior approach; difficulty in walking Onset Date 08/22/2019 Precautions Other Precautions per doctor's note: no precautions. Weight Bearing Status Weight Bearing Status Weight Bear as Tolerated Allowed Weight Bearing Amount (enter % WBAT LLE or #) (%) M3 PT-IP Subjective Start: 08/23/19 12:18 Freq: NEEDED Status: Active Protocol: Document 08/24/19 09:09 AB (Rec: 08/24/19 11:18 AB [id number]) Subjective Physical Therapy Visit Type Type Treatment Note Visit Start Time 09:09 Visit Stop Time 09:24 Total Visit Minutes 15 Number of HEAD NECK SURGEON Visits 0 Physical Therapy Visit Comments Patient Comments agreeable to do PT Therapy Pain Assessment Pain When Pain Assessed At Rest Pain Present Pain Present Pain Reported Location Left Hip Intensity 3 M4 PT-IP Mobility and Gait Start: 08/23/19 12:18 Freq: NEEDED Status: Active Protocol: Document 08/24/19 09:09 AB (Rec: 08/24/19 11:18 AB [id number]) PT-Bed Mobility Assessment Supine to Sit Supine to Sit Standby Assistance PT-Transfer Assessment Sit to and From Stand Sit to and from Stand Standby Assistance Equipment Transfer Assistive Device Gait Belt,Front Wheeled Walker Orthotic/Prosthetic Devices or Brace: No Transfers Transfer Destination Chair Transfer Technique ambulated using FWW Transfer Ability Level of Assist 1 Person Assistance Gait Assessment Gait Gait Assistance Required: Standby Assistance,Contact Guard Assist Distance (Feet) 250 Able to Maintain Weight Bearing Status Yes During Gait Assistive Devices Assistive Device Gait Belt,Front Wheeled Walker Orthotic/Prosthetic Devices or Brace: No Gait Deviations General Gait Pattern Antalgic Factors Limiting Gait Function Factors Limiting Gait Function Decreased Activity Tolerance, Decreased Strength,Limited Range of Motion,Pain,Poor Balance,Poor Safety Awareness Comments Gait Comments ambulated in the hallway using FWW SBA to occasional CGA for safety. requires cues to slow down Stair Climbing Assessment Evaluation Level of Assist On Stairs Contact Guard Assistance Devices Stair Climbing Assistive Devices Front Wheel Walker Technique/Endurance Stair Climbing Direction Ascend and Descend Stair Climbing Technique Step to Step Number of Steps Climbed 1 Stair Climbing Set # Repetitions (reps) 2 Comments Stair Climbing Comments up/down platform step using FWW CGA. M5 PT-IP Objective Assessments Start: 08/23/19 12:18 Freq: NEEDED Status: Active Protocol: Document 08/23/19 09:45 AB (Rec: 08/23/19 12:40 AB [email or web address]) Orientation Orientation/Cognition Level of Alertness Alert Orientation Name,Age,Birthday,Month,Date, Year,Day of Week,Place, Situation Safety Awareness Decreased Safety Awareness Gross Range of Motion Lower Extremity ROM Assessment Within Functional Limits Strength Lower Extremity Strength Assessment Left Impaired Hip 3+/5 Knee 4-/5 Coordination Assessment Gross Coordination Gross Coordination WNL Muscle Tone Muscle Tone WNL Yes M6 PT-IP Treatment Start: 08/23/19 12:18 Freq: NEEDED Status: Active Protocol: Document 08/24/19 09:09 AB (Rec: 08/24/19 11:18 AB [id number]) Physical Therapy Treatment Education Education Provided Safety M7 PT-IP Assessment and Plan Start: 08/23/19 12:18 Freq: NEEDED Status: Active Protocol: Document 08/24/19 09:09 AB (Rec: 08/24/19 11:18 AB [id number]) PT Summary Assessment and Plan Potential Rehabilitation Potential Good Summary Impairments Pain,ROM,Strength,Balance,Bed Mobility,Transfers,Gait, Activity Tolerance Progress Towards Goals Progressing Toward Goals Assessment Summary pt requiring SBA to CGA with mobility using FWW. pt plans to go home today and may go home when medically stable. Goals Bed Mobility Goal Independent Transfer Goal Independent,Front Wheeled Walker Gait Goal Independent,Front Wheel Walker Gait Distance 200 Other Goals up/down platform step using FWW SBA Days to Meet Goals 5 Frequency of Treatment Frequency Of Treatment Twice a Day Treatment Plan Physical Therapy Treatment Plan Bed Mobility Training,Transfer Training,Gait Training, Therapeutic Exercise,Balance Retraining,Post Op Education, Discharge Planning,Hot or Cold Pack,Neuromuscular Re-ed, Coordination Retraining,Manual Therapy Other Recommendations and Next Treatment ambulation, stair climbing Focus Recommendations To Nursing Amount of Assist Needed 1 Person Assist Discharge Recommendations PT Discharge Recommendations Home with Assistance, Outpatient PT Transportation Needs at Discharge Private Vehicle
[2019-08-24 10:52] VITALS: PULSE 78; RESP 18; O2SAT 96
[2019-08-24 11:47] VITALS: BP 140/63; PULSE 73; RESP 16; TEMP 37.1; O2SAT 97
--- NOTE | 2019-08-24 12:58 | PC.NURSE ---
Discharge: Pt feels ready to d/c home. He has voided since umanzor removal. First void was 25mls, bladder scanned for 175mls. About 30 mins later voided 150mls and pt reports he has been voiding w/out problems since. Discharge packet given, seen by PT prior to d/c and given their instructions. Pt denies any concerns. Pt d/c home via auto with friend.
== END 2019-08-24 12:30 | disposition home or self-care (01) | DRG 470 ==
PROVIDERS: Admitting Provider Orthopaedic Surgery Adult Reconstructive Orthopaedic Surgery; Family Provider Family Medicine; PCP Family Medicine; Referring Provider Orthopaedic Surgery Adult Reconstructive Orthopaedic Surgery; Visit Provider Orthopaedic Surgery Adult Reconstructive Orthopaedic Surgery
PROC: 0SRB06A Replacement of Left Hip Joint with Oxidized Zirconium on Polyethylene Synthetic Substitute, Uncemented, Open Approach (ICD-10-PCS; CPT 27130; principal; 2019-08-22 11:15)
DX: M16.12 Unilateral primary osteoarthritis, left hip (principal); K50.90 Crohn's disease, unspecified, without complications; M81.0 Age-related osteoporosis without current pathological fracture; I10 Essential (primary) hypertension; N40.1 Benign prostatic hyperplasia with lower urinary tract symptoms; R33.9 Retention of urine, unspecified
CPT/HCPCS: 36415; 72170; 73502; 76000; 85014; 85018; 85025; 94762; 97116; 97161; C1776; J0690; J1100; J1885; J2250; J2270; J2274; J2405; J3010

== ENCOUNTER 2024-06-15 12:45 | Emergency (ER) | payer MEDICARE, SELFPAY ==
[2019-08-22 16:37] VITALS: BMI 25.4
[2024-06-15] VITALS (19 sets, daily range): BP systolic 96–171; BP diastolic 56–93; PULSE 74–124; RESP 12–39; TEMP 37.2; O2SAT 90–98; BMI 25.0
--- NOTE | 2024-06-15 12:58 | DI.CT.S_ITS ---
PROCEDURE: CT ABDOMEN PELVIS W CON INDICATIONS: History of Crohn's disease, persistent diarrhea TECHNIQUE: After the administration of intravenous contrast, axial sections acquired from the lung bases to the pubic symphysis. Coronal and sagittal reformats were performed. For radiation dose reduction, the following was used: automated exposure control, adjustment of mA and/or kV according to patient size. COMPARISON: None. FINDINGS: Image quality: Portions of the lower pelvis are suboptimally evaluated secondary to metallic streak artifact from hip arthroplasty. Lower Chest: No significant findings. ABDOMEN: Liver: No solid mass. Liver is somewhat coarsened, slightly nodular in appearance. Gallbladder: No radiopaque gallstones or wall thickening. Biliary ducts: No biliary dilation. Pancreas: No ductal dilation. Spleen: Not visualized. Adrenal Glands: Right adrenal mass is present measuring 1.4 cm, Hounsfield units 12. Kidneys and Ureters: No hydronephrosis. Simple renal cysts. Stomach and Bowel: Dilated fluid-filled loops of small bowel are present with greatest dimension measuring 3.4 cm. There is significant thickening of the terminal ileum. Peritoneum: No abnormal intraperitoneal fluid. No free air. Ventral Wall: Contained ventral hernia. Abdominal Nodes: No retroperitoneal or mesenteric adenopathy by size criteria. Vessels: Aorta and inferior vena cava are normal in size. There is an appearance rule venous varices. PELVIS: Pelvic Organs: Prostate gland is enlarged. Bladder: No bladder wall thickening, accounting for underdistention. Pelvic Nodes: No enlarged lymph nodes. Miscellaneous: No inguinal hernias are seen. Bones: No aggressive osseous abnormality. Left hip arthroplasty. IMPRESSION: Partial small bowel obstruction felt to be secondary to inflammatory change with the terminal ileum. 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 Right adrenal gland suspected to be benign given Hounsfield units. Dictated by: Joanna Wagner M.D. on 06/15/2024 at 16:07 Approved by: Joanna Wagner M.D. on 06/15/2024 at 16:21
--- NOTE | 2024-06-15 13:01 | EKG_ITS ---
[facility] [address] [place] [address] Test Date: 2024-06-15 Pat Name: Kobe Farmer Department: 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
--- NOTE | 2024-06-15 13:21 | ED_ITS ---
HPI - Nausea/Vomiting/Diarrhea <Jase Garner, DO - Last Filed: 06/16/24 07:12> General Chief complaint: Nausea/Vomiting/Diarrhea Stated complaint: Low BP/Diarrhea Time Seen by Provider: 06/15/24 12:56 Source: patient Mode of arrival: EMS Limitations: no limitations History of Present Illness HPI Narrative: Patient was an 79-year-old male. Medical history states he has a history of Crohn's disease although he states he was not sure this. He stated that yesterday he had 2 episodes of diarrhea. No vomiting. No fevers. No urinary symptoms. He states he did have a bowel movement today that was more loose than normal but certainly was not watery like yesterday. No abdominal pain. States he just feels ?worn out? per report he states he had a presyncopal episode while in the shower. Patient does admit that he is having some memory issues. After my initial evaluation he informed nursing staff that he does have history of Crohn's disease and did have an episode of diarrhea while in the shower this morning. He denies chest pain, shortness of breath. Related Data Home Medications Medication Instructions Recorded Confirmed cholecalciferol (vitamin D3) 50 2,000 unit PO DAILY 11/11/18 08/18/19 mcg (2,000 unit) capsule lisinopril 30 mg tablet 15 mg PO DAILY 11/11/18 08/18/19 loperamide 2 mg capsule (Imodium 1 mg PO DAILY 11/11/18 08/18/19 A-D) melatonin 5 mg capsule 5 mg PO BEDTIME 11/11/18 08/22/19 metronidazole 0.75 % topical gel 1 applictn topical BID Face 11/11/18 08/22/19 tamsulosin 0.4 mg capsule (Flomax) 0.8 mg PO BEDTIME 11/11/18 08/18/19 cyanocobalamin (vitamin B-12) 100 mcg PO DAILY 08/18/19 08/22/19 1,000 mcg tablet (Vitamin B-12) ferrous gluconate 324 mg (38 mg 324 mg PO BID 08/18/19 08/22/19 iron) tablet fluoxetine 20 mg tablet 10 mg PO DAILY 08/18/19 08/18/19 mesalamine 250 mg capsule,extended 250 mg PO QID Crohns 08/18/19 08/18/19 release (Pentasa) pantoprazole 20 mg tablet,delayed 20 mg PO DAILY 08/18/19 08/18/19 release Previous Rx's Medication Instructions Recorded acetaminophen 325 mg tablet 500 mg (1.5385 x 325 mg) PO Q4HR 08/24/19 #60 tabs aspirin 81 mg tablet,delayed 81 mg PO BID #60 tabs 08/24/19 release oxycodone 5 mg tablet 5 mg PO Q3HR PRN Pain, Moderate 08/24/19 (4-6) #40 tabs Allergies Allergy/AdvReac Type Severity Reaction Status Date / Time budesonide Allergy Intermediate can't Verified 08/22/19 10:14 remember Penicillins Allergy Intermediate Rash Verified 08/22/19 10:14 NSAIDS (Non-Steroidal AdvReac Severe Abdominal Verified 08/22/19 10:14 Anti-Inflamma Pain erythromycin base AdvReac Intermediate made my Verified 08/22/19 10:14 [From Erythrocin] head spin Review of Systems <Jase Garner DO - Last Filed: 06/16/24 07:12> Review of Systems Narrative: See HPI Patient History <Jase Garner DO - Last Filed: 06/16/24 07:12> Medical History Stomach ulcer Memory changes Easy bruisability Thinning of skin Arthritis Osteoarthritis Overactive bladder Crohn's disease HTN (hypertension) Hearing impaired Surgical History (Updated 08/18/19 @ 10:28 by Sarah Cohen RN) Hx of tonsillectomy History of colon resection (~1984) Hx of splenectomy (~1984) Social History household members: spouse Smoking Status: Former smoker alcohol intake: current Smoking Status: Former smoker alcohol intake frequency: 0-2 drinks per day Exam <Jase Garner DO - Last Filed: 06/16/24 07:12> Initial Vital Signs Initial Vital Signs: Vital Signs Temperature 98.9 F 06/15/24 12:50 Pulse Rate 74 06/15/24 12:50 Respiratory Rate 16 06/15/24 12:50 Blood Pressure 100/57 L 06/15/24 12:50 Pulse Oximetry 96 06/15/24 12:50 Oxygen Delivery Method Room Air 06/15/24 12:50 Const General: cooperative, comfortable and No ill appearing [facility] Head: normal to inspection and normocephalic Resp Effort & Inspection: normal respiratory effort Auscultation: clear to auscultation bilaterally Cardio Rate: regular rate Rhythm: regular rhythm GI Inspection: normal to inspection and non-distended Skin General: no rashes or lesions noted Neuro General: patient alert, patient awake, patient oriented x3 and moves all extremities Extrem General: capillary refill normal <Jeronimo Gonzalez MD - Last Filed: 06/16/24 00:56> Initial Vital Signs Initial Vital Signs: Vital Signs Temperature 98.9 F 06/15/24 12:50 Pulse Rate 74 06/15/24 12:50 Respiratory Rate 16 06/15/24 12:50 Blood Pressure 100/57 L 06/15/24 12:50 Pulse Oximetry 96 06/15/24 12:50 Oxygen Delivery Method Room Air 06/15/24 12:50 Course <Jase Garner DO - Last Filed: 06/16/24 07:12> Orders Ordered: ED Orders 06/15/24 22:15 Ammonia (NH3) Stat Complete Blood Count AUTO DIFF Stat Comprehensive Metabolic Panel Stat Lipase Stat Discontinued Medications Sodium Chloride (Normal Saline 0.9%) 1,000 mls @ 1,000 mls/hr IV BOLUS ONE Stop: 06/15/24 13:57 Last Infusion: 06/15/24 14:21 Dose: Infused Documented By: Admin: 06/15/24 13:26 Dose: 1,000 mls/hr Documented By: BYRON Methylprednisolone (Methylprednisolone 125 Mg/2 Ml Vial) 125 mg IV NOW ONE Stop: 06/15/24 18:51 Last Admin: 06/15/24 19:09 Dose: 125 mg Documented By: BYRON Vital Signs Vital signs: Vital Signs - 8 hr 06/15/24 23:37 Pulse Rate 88 Respiratory Rate 18 Blood Pressure 137/68 Pulse Oximetry 95 Oxygen Delivery Method Room Air <Jeronimo Gonzalez MD - Last Filed: 06/16/24 00:56> Orders Ordered: ED Orders 06/15/24 22:15 Ammonia (NH3) Stat Complete Blood Count AUTO DIFF Stat Comprehensive Metabolic Panel Stat Lipase Stat Discontinued Medications Sodium Chloride (Normal Saline 0.9%) 1,000 mls @ 1,000 mls/hr IV BOLUS ONE Stop: 06/15/24 13:57 Last Infusion: 06/15/24 14:21 Dose: Infused Documented By: Admin: 06/15/24 13:26 Dose: 1,000 mls/hr Documented By: BYRON Methylprednisolone (Methylprednisolone 125 Mg/2 Ml Vial) 125 mg IV NOW ONE Stop: 06/15/24 18:51 Last Admin: 06/15/24 19:09 Dose: 125 mg Documented By: BYRON Vital Signs Vital signs: Vital Signs - 8 hr 06/15/24 23:37 Pulse Rate 88 Respiratory Rate 18 Blood Pressure 137/68 Pulse Oximetry 95 Oxygen Delivery Method Room Air MDM - Nausea/Vomiting/Diarrhea <Jase Garner DO - Last Filed: 06/16/24 07:12> Lab Data Attestation: I reviewed the patient's lab results. 06/15/24 22:15 06/15/24 22:15 Labs: Lab Results 06/15/24 06/15/24 Range/Units 14:30 22:15 WBC 30.2 H* 22.4 H (4.5-11.0) X10^3/uL RBC 4.92 4.60 (4.5-5.9) X10^6/uL Hgb 15.4 14.4 (13.5-17.5) g/dL Hct 46.3 43.1 (41-53) % MCV 94.2 93.6 (80-100) fL MCH 31.4 31.2 (26-34) PG MCHC 33.3 33.4 (30-36) % RDW 14.6 14.6 (11.6-14.8) % Plt Count 332 332 (150-400) X10^3/uL Neut % (Auto) 88.5 H 98.1 H (50-75) % Lymph % (Auto) 0.8 L 1.1 L (25-40) % [place] % (Auto) 10.1 0.7 L (3-14) % Eos % (Auto) 0.1 L 0.0 L (2-4) % Baso % (Auto) 0.5 0.1 (0-2) % Neut # (Auto) 99228 H 98728 H (1495-4804) /uL Lymph # (Auto) 300 L 300 L (3899-2144) /uL Madison # (Auto) 3000 H 200 (0-900) /uL Eos # (Auto) 0 0 (0-450) /uL Baso # (Auto) 200 H 0 (0-100) /uL Total Counted 100 Seg Neutrophils % 83.0 H (38-70) % Band Neutrophils % 5.0 (3-7) % Monocytes % (Manual) 12.0 H (2-11) % Neutrophils # (Manual) 04918 H (1832-2544) /uL Toxic Vacuolation Present H RBC Morphology See below Acanthocytes (Spur) 2+ Sodium 138 136 L (137-145) mmol/L Potassium 4.0 4.2 (3.4-5.1) mmol/L Chloride 107 107 (98-107) mmol/L Carbon Dioxide 24 20 L (22-32) mmol/L BUN 17 19 (9-20) mg/dL Creatinine 1.10 0.85 (0.66-1.25) mg/dL Estimated GFR > 60 > 60 (>60) mL/min BUN/Creatinine Ratio 15.5 22.4 H (6-22) Glucose 156 H 153 H (80-110) mg/dL Calcium 9.4 9.4 (8.4-10.2) mg/dL Magnesium 2.0 (1.6-2.3) mg/dL Total Bilirubin 1.3 1.3 (0.2-1.3) mg/dL AST 41 32 (17-59) IU/L ALT 22 19 (<50) IU/L Alkaline Phosphatase 67 67 (38-126) U/L Ammonia < 9 L (9-30) umol/L Total Protein 6.8 6.4 (6.3-8.2) g/dL Albumin 4.2 3.9 (3.5-5.0) g/dL Globulin 2.6 2.5 (1.7-4.1) g/dL Albumin/Globulin Ratio 1.6 1.6 (1.0-2.8) Lipase 88 43 D (23-300) U/L Imaging Data CT scan - abdomen/pelvis: Radiologist's Impression: PROCEDURE: CT ABDOMEN PELVIS W CON INDICATIONS: History of Crohn's disease, persistent diarrhea TECHNIQUE: After the administration of intravenous contrast, axial sections acquired from the lung bases to the pubic symphysis. Coronal and sagittal reformats were performed. For radiation dose reduction, the following was used: automated exposure control, adjustment of mA and/or kV according to patient size. COMPARISON: None. FINDINGS: Image quality: Portions of the lower pelvis are suboptimally evaluated secondary to metallic streak artifact from hip arthroplasty. Lower Chest: No significant findings. ABDOMEN: Liver: No solid mass. Liver is somewhat coarsened, slightly nodular in appearance. Gallbladder: No radiopaque gallstones or wall thickening. Biliary ducts: No biliary dilation. Pancreas: No ductal dilation. Spleen: Not visualized. Adrenal Glands: Right adrenal mass is present measuring 1.4 cm, Hounsfield units 12. Kidneys and Ureters: No hydronephrosis. Simple renal cysts. Stomach and Bowel: Dilated fluid-filled loops of small bowel are present with greatest dimension measuring 3.4 cm. There is significant thickening of the terminal ileum. Peritoneum: No abnormal intraperitoneal fluid. No free air. Ventral Wall: Contained ventral hernia. Abdominal Nodes: No retroperitoneal or mesenteric adenopathy by size criteria. Vessels: Aorta and inferior vena cava are normal in size. There is an appearance rule venous varices. PELVIS: Pelvic Organs: Prostate gland is enlarged. Bladder: No bladder wall thickening, accounting for underdistention. Pelvic Nodes: No enlarged lymph nodes. Miscellaneous: No inguinal hernias are seen. Bones: No aggressive osseous abnormality. Left hip arthroplasty. IMPRESSION: Partial small bowel obstruction felt to be secondary to inflammatory change with the terminal ileum. 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 Right adrenal gland suspected to be benign given Hounsfield units. ECG Data Attestation: I personally reviewed and interpreted this ECG as follows: Interpretation: Sinus rhythm Ventricular rate 92 Normal axis Normal QRS Normal QTC No ST T wave changes MDM Narrative Medical decision making narrative: It appears the patient does have history of Crohn's disease. He would diarrhea yesterday. Initially stated that he did not have diarrhea today but then told nursing staff that he had an episode of it. He did not report any blood in the stool or dark-colored stools. He does have somewhat of a distended abdomen but it is soft. CT scan shows what appears to be a partial small bowel obstruction. Given his history of Crohn's disease doctor Robb with Internal Medicine recommended consultation with GI. Patient has a leukocytosis of 30. I do not see any history of CLL/CML. Does not appear that he was on chronic steroids. Care turned over to Dr. Gonzalez at change of shift to follow-up after discussion with GI and disposition. <Jeronimo Gonzalez MD - Last Filed: 06/16/24 00:56> Lab Data Labs: Lab Results 06/15/24 06/15/24 Range/Units 14:30 22:15 WBC 30.2 H* 22.4 H (4.5-11.0) X10^3/uL RBC 4.92 4.60 (4.5-5.9) X10^6/uL Hgb 15.4 14.4 (13.5-17.5) g/dL Hct 46.3 43.1 (41-53) % MCV 94.2 93.6 (80-100) fL MCH 31.4 31.2 (26-34) PG MCHC 33.3 33.4 (30-36) % RDW 14.6 14.6 (11.6-14.8) % Plt Count 332 332 (150-400) X10^3/uL Neut % (Auto) 88.5 H 98.1 H (50-75) % Lymph % (Auto) 0.8 L 1.1 L (25-40) % Madison % (Auto) 10.1 0.7 L (3-14) % Eos % (Auto) 0.1 L 0.0 L (2-4) % Baso % (Auto) 0.5 0.1 (0-2) % Neut # (Auto) 40773 H 97854 H (0642-1403) /uL Lymph # (Auto) 300 L 300 L (9402-7974) /uL Madison # (Auto) 3000 H 200 (0-900) /uL Eos # (Auto) 0 0 (0-450) /uL Baso # (Auto) 200 H 0 (0-100) /uL Total Counted 100 Seg Neutrophils % 83.0 H (38-70) % Band Neutrophils % 5.0 (3-7) % Monocytes % (Manual) 12.0 H (2-11) % Neutrophils # (Manual) 95556 H (8378-1658) /uL Toxic Vacuolation Present H RBC Morphology See below Acanthocytes (Spur) 2+ Sodium 138 136 L (137-145) mmol/L Potassium 4.0 4.2 (3.4-5.1) mmol/L Chloride 107 107 (98-107) mmol/L Carbon Dioxide 24 20 L (22-32) mmol/L BUN 17 19 (9-20) mg/dL Creatinine 1.10 0.85 (0.66-1.25) mg/dL Estimated GFR > 60 > 60 (>60) mL/min BUN/Creatinine Ratio 15.5 22.4 H (6-22) Glucose 156 H 153 H (80-110) mg/dL Calcium 9.4 9.4 (8.4-10.2) mg/dL Magnesium 2.0 (1.6-2.3) mg/dL Total Bilirubin 1.3 1.3 (0.2-1.3) mg/dL AST 41 32 (17-59) IU/L ALT 22 19 (<50) IU/L Alkaline Phosphatase 67 67 (38-126) U/L Ammonia < 9 L (9-30) umol/L Total Protein 6.8 6.4 (6.3-8.2) g/dL Albumin 4.2 3.9 (3.5-5.0) g/dL Globulin 2.6 2.5 (1.7-4.1) g/dL Albumin/Globulin Ratio 1.6 1.6 (1.0-2.8) Lipase 88 43 D (23-300) U/L [facility] Narrative Medical decision making narrative: It appears the patient does have history of Crohn's disease. He would diarrhea yesterday. Initially stated that he did not have diarrhea today but then told nursing staff that he had an episode of it. He did not report any blood in the stool or dark-colored stools. He does have somewhat of a distended abdomen but it is soft. CT scan shows what appears to be a partial small bowel obstruction. Given his history of Crohn's disease doctor Robb with Internal Medicine recommended consultation with GI. Patient has a leukocytosis of 30. I do not see any history of CLL/CML. Does not appear that he was on chronic steroids. Care turned over to Dr. Gonzalez at change of shift to follow-up after discussion with GI and disposition. 06/15/2024, Lorelei, Carlos. Sign-out from Dr. Garner. 79-year-old male in memory care unit facility with generalized abdominal pain, had several episodes diarrhea yesterday at the care facility nonbloody, has been having loose stools for 2 days nonbloody, history of Crohn's disease, no known establish GI provider, not on chronic steroids or immunosuppressive therapy for Crohn's disease, presyncopal episode yesterday in the shower, low blood pressure on EMS transport, white blood cell count [id number] noted, prior white blood cell count 74437 in 2021 noted. IV fluid bolus given. CT abdomen and pelvis today shows partial small-bowel obstruction with transitional region terminal ileum, surgery Dr. Herrera was consulted, hospitalist here Dr. Fairbanks was consulted, hospitalist here does not feel comfortable managing this patient, advising higher level of care with GI Services. No steroids given. No antibiotics given. Await GI consultation, possible transfer. Assumed care. Patient has had elevated white blood cell count in the past, white blood cell count [id number] noted 2021 in previous single available lab comparison. Will add IV Solu-Medrol 1949, case discussed with Jazmin Maciel case discussed intake, await call back from hospitalist and GI in their service, possible transfer. 2029, case discussed with [facility] surgery Dr. Aguirre, who feels patient can be admitted through GI/hospitalist service 2114, case discussed with [facility] hospitalist Dr. Thao, accepts patient for admission/transfer 2219, phone call with medical power of commonwealth attorney who identifies himself as Kobe Ramírez, cell phone [phone], relayed to him relevant patient clinical information, concerns about CT scan SBO findings, concerns about coordinating GI consultation not available here, and that patient was accepted for transfer at [facility]. Medical KENDRICK Ramírez expressed understanding of the situation, gave verbal consent to proceed. transfer by EMS to [facility] Discharge Plan Departure Patient Disposition: [facility] Clinical Impression: Partial intestinal obstruction, Near syncope, History of Crohn's disease, Diarrhea Prescriptions: No Action Pentasa 250 mg Capsule, Extended Release 250 mg PO QID fluoxetine 20 mg Tablet 10 mg PO DAILY Rx Instructions: Takes at noon cyanocobalamin (vitamin B-12) [Vitamin B-12] 1,000 mcg Tablet 100 mcg PO DAILY ferrous gluconate 324 mg (38 mg iron) Tablet 324 mg PO BID pantoprazole 20 mg Tablet,Delayed Release (Dr/Ec) 20 mg PO DAILY acetaminophen 325 mg Tablet 500 mg PO Q4HR Qty: 60 0RF aspirin 81 mg Tablet,Delayed Release (Dr/Ec) 81 mg PO BID Qty: 60 0RF oxycodone 5 mg Tablet 5 mg PO Q3HR PRN (Reason: Pain, Moderate (4-6)) Qty: 40 0RF cholecalciferol (vitamin D3) 2,000 unit capsule 2,000 unit PO DAILY lisinopril 30 mg tablet 15 mg PO DAILY Rx Instructions: Takes at noon loperamide [Imodium A-D] 2 mg capsule 1 mg PO DAILY melatonin 5 mg capsule 5 mg PO BEDTIME metronidazole 0.75 % gel 1 applictn TOP BID tamsulosin [Flomax] 0.4 mg capsule 0.8 mg PO BEDTIME Referrals: Violet Callahan MD [Primary Care Provider] -
[2024-06-15] MEDS: SODIUM CHLORIDE 0.9% 1,000 ML 1000 ML IV (13:26)
[2024-06-15 14:47] LABS: Add Manual Diff / Slide Review NO; Basophils Absolute Auto 200 /uL (0-100); Basophils Percent Auto 0.5 % (0-2); Eosinophils Absolute Auto 0 /uL (0-450); Eosinophils Percent Auto 0.1 % (2-4); Hematocrit 46.3 % (41-53); Hemoglobin 15.4 g/dL (13.5-17.5); Lymphocytes Absolute Auto 300 /uL (1100-4500); Lymphocytes Percent Auto 0.8 % (25-40); Mean Corpuscular HGB Conc 33.3 % (30-36); Mean Corpuscular Hemoglobin 31.4 PG (26-34); Mean Corpuscular Volume 94.2 fL (80-100); Monocytes Absolute Auto 3000 /uL (0-900); Monocytes Percent Auto 10.1 % (3-14); Neutrophils Absolute Auto 26700 /uL (1500-7000); Neutrophils Percent Auto 88.5 % (50-75); Platelet Count 332 X10^3/uL (150-400); Red Blood Cell Count 4.92 X10^6/uL (4.5-5.9); Red Cell Distribution Width 14.6 % (11.6-14.8)
[2024-06-15 14:52] LABS: White Blood Cell Count 30.2 X10^3/uL (4.5-11.0)
[2024-06-15 14:58] LABS: Alanine Aminotransferase 22 IU/L (<50); Albumin 4.2 g/dL (3.5-5.0); Albumin Globulin Ratio 1.6 (1.0-2.8); Alkaline Phosphatase 67 U/L (38-126); Aspartate Aminotransferase 41 IU/L (17-59); BUN Creatinine Ratio 15.5 (6-22); Bilirubin Total 1.3 mg/dL (0.2-1.3); Blood Urea Nitrogen 17 mg/dL (9-20); Calcium 9.4 mg/dL (8.4-10.2); Carbon Dioxide 24 mmol/L (22-32); Chloride 107 mmol/L (98-107); Estimated Glomerular Filt Rate > 60 mL/min (>60); Globulin 2.6 g/dL (1.7-4.1); Glucose 156 mg/dL (80-110); HEMOLYSIS 37 (0-50); Lipase 88 U/L (23-300); Sodium 138 mmol/L (137-145); Total Protein 6.8 g/dL (6.3-8.2)
[2024-06-15 15:02] LABS: Neutrophils Absolute Manual 26576 /uL (3000-5900); Total Cells Counted 100
[2024-06-15 15:03] LABS: Acanthocytes 2+; Toxic Vacuolation Present
--- NOTE | 2024-06-15 17:28 | PM.CALLCOV.1 ---
Call Coverage Note Note Narrative of Care Provided: 79 M with PMH of crohn's disease, medicine asked to evaluate for admission for partial SBO. Based on CT appearance, most likely etiology is related to crohn's disease. Recommend transfer to higher level center with GI consultation available as an inpatient.
[2024-06-15] MEDS: methylPREDNISolone 125 MG/2 ML VIAL IV (19:09)
--- NOTE | 2024-06-15 21:44 | PC.NURSE ---
Provider wanted to talk to POA about pt wanting to leave. Left 2 vm for Kobe Ramírez [phone]
[2024-06-15 22:33] LABS: Add Manual Diff / Slide Review NO; Basophils Absolute Auto 0 /uL (0-100); Basophils Percent Auto 0.1 % (0-2); Eosinophils Absolute Auto 0 /uL (0-450); Hematocrit 43.1 % (41-53); Hemoglobin 14.4 g/dL (13.5-17.5); Lymphocytes Absolute Auto 300 /uL (1100-4500); Lymphocytes Percent Auto 1.1 % (25-40); Mean Corpuscular HGB Conc 33.4 % (30-36); Mean Corpuscular Hemoglobin 31.2 PG (26-34); Mean Corpuscular Volume 93.6 fL (80-100); Monocytes Absolute Auto 200 /uL (0-900); Monocytes Percent Auto 0.7 % (3-14); Neutrophils Absolute Auto 22000 /uL (1500-7000); Neutrophils Percent Auto 98.1 % (50-75); Platelet Count 332 X10^3/uL (150-400); Red Cell Distribution Width 14.6 % (11.6-14.8); White Blood Cell Count 22.4 X10^3/uL (4.5-11.0)
[2024-06-15 22:43] LABS: Ammonia (NH3) < 9 umol/L (9-30)
[2024-06-15 22:44] LABS: Alanine Aminotransferase 19 IU/L (<50); Albumin 3.9 g/dL (3.5-5.0); Albumin Globulin Ratio 1.6 (1.0-2.8); Alkaline Phosphatase 67 U/L (38-126); Aspartate Aminotransferase 32 IU/L (17-59); BUN Creatinine Ratio 22.4 (6-22); Bilirubin Total 1.3 mg/dL (0.2-1.3); Blood Urea Nitrogen 19 mg/dL (9-20); Calcium 9.4 mg/dL (8.4-10.2); Carbon Dioxide 20 mmol/L (22-32); Chloride 107 mmol/L (98-107); Estimated Glomerular Filt Rate > 60 mL/min (>60); Globulin 2.5 g/dL (1.7-4.1); Glucose 153 mg/dL (80-110); HEMOLYSIS < 15 (0-50); Lipase 43 U/L (23-300); Potassium 4.2 mmol/L (3.4-5.1); Sodium 136 mmol/L (137-145); Total Protein 6.4 g/dL (6.3-8.2)
== END 2024-06-16 | disposition short-term general hospital (02) ==
PROVIDERS: Emergency Medicine; Emergency Provider Emergency Medicine; Family Provider Family Medicine; PCP Family Medicine
DX: K56.600 Partial intestinal obstruction, unspecified as to cause (principal); R55 Syncope and collapse; R19.7 Diarrhea, unspecified; Z87.19 Personal history of other diseases of the digestive system
CPT/HCPCS: 36415; 74177; 80053; 82140; 83690; 83735; 85007; 85025; 93005; 93010; 96361; 96374; 99284; 99285; J2919; Q9967